=== PATIENT | male | born 1970 | race Caucasian/White ===

== ENCOUNTER 2022-04-05 10:40 | Emergency (ER) | payer BC ==
--- OUTSIDE RECORDS SUMMARY | 2022-04-05 10:42 | XMS REPORT | Continuity of Care Document ---
:1970 Author Organization [facility] t Address [address] [place] [address] Care Team Providers Name Role Phone XIOMY HOOD Attending Clinician Unavailable Paul Brown MD Attending Clinician Only, Adc Test Attending Clinician Unavailable Mason Duenas MD Attending Clinician MASON DUENAS Attending Clinician Unavailable Doctor Unassigned, [place] Attending Clinician Unavailable Payers Payer Name Policy Type Policy Number Effective Date Expiration Date S nadeen BCBSTX PPO [id number] 2005 00:00:00 Problems This patient has no known problems. Allergies, Adverse Reactions, Alerts Allergy Allergy Status Severity Reaction(s) Onset Inactive Treating Comm ents Source Name Type Date Date Clinician NO KNOWN Drug Active Univers ALLERGIE Class ity of [facility] Social History Social Habit Start Date Stop Date Quantity Comments Source [facility] Sm[facility] Status Start Date Stop Date Source [facility] Medications This patient has no known medications. Procedures This patient has no known procedures. Encounters Start End Encounter Admission Attending Care Care Encounter Source Date/Time Date/Time Type Type Clinicians Facility Department ID 2020-12-06 Outpatient SANA, [facility] [id number] [place] 10:49:39 XIOMY [facility] 2020-07-23 2020-07-23 Telephone BLAIR Brown [id number] [facility] 00:00:00 00:00:00 Paul MUSA [id number] i [facility] [id number] Michael as [id number] [address] 2020 2020 Laboratory Only, Adc Test [facility] [id number] Univers 10:38:57 10:53:57 Only Mason Duenas [id number] ity [facility] [id number] [facility] [id number] [place] [address] [address] 2020 2020 Outpatient R HENRIQUE [facility] [id number] [facility] 10:45:00 10:45:00 MASON waterman [facility] 2020 2020 Letter Doctor BLAIR [id number] Univers 00:00:00 00:00:00 (Out) Unassigned, LENCHO [id number] ity of [place] [facility] [id number] [facility] [phone] [place] [address] Branch Results This patient has no known results.
[2022-04-05] MEDS ORDERED: PHENYLEPHRINE 0.5% NOSE 15ML NAS ONE (10:51)
[2022-04-05] MEDS ORDERED: OXYMETAZOLINE HCL 0.05% 15ML NAS ONE (11:01)
--- NOTE | 2022-04-05 12:34 | EDPHYS ---
Physician Documentation [facility] Name: Santos Barnett Age: 51 yrs Sex: Male : 1970 Arrival Date: 04/05/2022 Time: 10:40 Bed 15 Private MD: Aby Fontanez ED Physician Andrés Casey HPI: 04/05 11:29 This 51 yrs old Male presents to ER via Ambulatory with complaints of Nose Bleed. rn 11:29 The patient presents with a nose bleed, occurred from an unknown cause, that is rn intermittent. Onset: The symptoms/episode began/occurred this morning. Modifying factors: The symptoms are alleviated by nothing. the symptoms are aggravated by blowing nose. Associated signs and symptoms: Loss of consciousness: the patient experienced no loss of consciousness, Pertinent negatives: lightheadedness, shortness of breath. Severity of symptoms: At their worst the symptoms were moderate in the emergency department the symptoms are unchanged. The patient has not experienced similar symptoms in the past. The patient has not recently seen a physician. Pt reports on xarelto and started with nosebleed that began 45 min ago. Briefly improved but then started again. No trauma. No change in dose. . Historical: - Allergies: 10:50 No Known Allergies; iw - Home Meds: 11:45 Xarelto oral [Active]; metoprolol tartrate Oral [Active]; ko1 - Immunization history:: Adult Immunizations unknown. - Social history:: Smoking status: Patient/guardian denies using tobacco, the patient reports quitting approximately 15 years ago, Patient uses street drugs, marijuana. - Family history:: not pertinent. - Hospitalizations: : No recent hospitalization is reported. ROS: 11:29 Constitutional: Negative for fever, chills, and weight loss, ENT: + nosebleed intake rn: Negative for chest pain, palpitations, and edema, Respiratory: Negative for shortness of breath, cough, wheezing, and pleuritic chest pain, Abdomen/GI: Negative for abdominal pain, nausea, vomiting, diarrhea, and constipation, Neuro: Negative for headache, weakness, numbness, tingling, and seizure. Exam: 11:31 Constitutional: This is a well developed, well nourished patient who is awake, alert, rn and in no acute distress. Head/Face: Normocephalic, atraumatic. ENT: + left sided nosebleed, with clot evacuated. Cardiovascular: Regular rate and rhythm. No pulse deficits. Respiratory: No increased work of breathing, no retractions or nasal flaring. Neuro: Awake and alert, GCS 15 Vital Signs: 10:49 BP 159 / 103; Pulse 103; Resp 16; Temp 98.2; Pulse Ox 95% on R/A; iw 11:00 BP 155 / 98; Pulse 98; ko1 11:00 Weight 89.81 kg; Height 5 ft. 5 in. (165.10 cm); Pain 0/10; ko1 12:07 BP 157 / 93; ko1 11:00 Body Mass Index 32.95 (89.81 kg, 165.10 cm) ko1 Procedures: 11:55 Epistaxis treatment: A moderate amount of bleeding noted from Treated using rn Oxymetazoline sprays, rhino rocket, Bleeding decreased. MDM: 10:44 Patient medically screened. rn 12:32 Differential diagnosis: spontaneous epistaxis. Data reviewed: vital signs, nurses rn notes, and as a result, I will discharge patient. Counseling: I had a detailed discussion with the patient and/or guardian regarding: the historical points, exam findings, and any diagnostic results supporting the discharge/admit diagnosis, the need for outpatient follow up, to return to the emergency department if symptoms worsen or persist or if there are any questions or concerns that arise at home. Response to treatment: the patient's symptoms have resolved after treatment, and as a result, I will discharge patient. Special discussion: I discussed with the patient/guardian in detail that at this point there is no indication for admission to the hospital. It is understood, however, that if the symptoms persist or worsen the patient needs to return immediately for re-evaluation. ED course: Bleeding resolved, observed for sometime here, feels better, denies any blood running down throat or right nare. WIll dc home with ENT f/u or return here if unable to f/u with ENT. . Administered Medications: 11:02 Drug: Oxymetazoline Drops (0.05 %) 1 sprays Route: Intranasal; Site: both nares; ko1 Disposition Summary: 04/05/22 12:33 Discharge Ordered Location: Home rn Problem: new rn Symptoms: are resolved rn Condition: Stable rn Diagnosis - Epistaxis rn Followup: rn - With: Selin Vaz MD - When: 2 - 3 days - Reason: Recheck today's complaints, Re-evaluation by your physician Discharge Instructions: - Discharge Summary Sheet rn - Ronald, Adult rn Forms: - Medication Reconciliation Form rn - Thank You Letter rn - Antibiotic nurse charge rn - Prescription Opioid Use rn Prescriptions: - Augmentin 875-125 mg Oral Tablet - take 1 tablet by ORAL route every 12 hours for 10 days; 20 tablet; Refills: 0, rn Product Selection Permitted Signatures: Hattie Del Valle RN Andrés Jeffrey MD MD rn Oliver, Kathy, RN RN ko1
--- NOTE | 2022-04-05 12:34 | ER ---
Nurse's Notes [facility] Name: Santos Barnett Age: 51 yrs Sex: Male : 1970 Arrival Date: 04/05/2022 Time: 10:40 Bed 15 Private MD: Aby Fontanez Diagnosis: Epistaxis Presentation: 04/05 10:49 Chief complaint: Patient states: nose bleed X 90 minutes , on xarelto. Coronavirus iw screen: At this time, the client does not indicate any symptoms associated with coronavirus-19. Ebola Screen: Patient negative for fever greater than or equal to 101.5 degrees Fahrenheit, and additional compatible Ebola Virus Disease symptoms Patient denies exposure to infectious person. Patient denies travel to an Ebola-affected area in the 21 days before illness onset. No symptoms or risks identified at this time. Initial Sepsis Screen: Does the patient meet any 2 criteria? No. Patient's initial sepsis screen is negative. Does the patient have a suspected source of infection? No. Patient's initial sepsis screen is negative. Risk Assessment: Do you want to hurt yourself or someone else? Patient reports no desire to harm self or others. Onset of symptoms was April 05, 2022. 10:49 Method Of Arrival: Ambulatory iw 10:49 Acuity: ELDA 3 iw Historical: - Allergies: 10:50 No Known Allergies; iw - Home Meds: 11:45 Xarelto oral [Active]; metoprolol tartrate Oral [Active]; ko1 - Immunization history:: Adult Immunizations unknown. - Social history:: Smoking status: Patient/guardian denies using tobacco, the patient reports quitting approximately 15 years ago, Patient uses street drugs, marijuana. - Family history:: not pertinent. - Hospitalizations: : No recent hospitalization is reported. Screenin:00 Abuse screen: Denies threats or abuse. Denies injuries from another. Nutritional ko1 screening: No deficits noted. Tuberculosis screening: No symptoms or risk factors identified. Fall Risk None identified. Assessment: 11:00 General: Appears distressed, uncomfortable, Behavior is calm, cooperative, appropriate ko1 for age. Pain: Denies pain. Neuro: No deficits noted. Cardiovascular: No deficits noted. Respiratory: No deficits noted. GI: No deficits noted. : No deficits noted. EENT: Nares with bleeding noted bilaterally Reports. Derm: No deficits noted. Musculoskeletal: No deficits noted. Vital Signs: 10:49 BP 159 / 103; Pulse 103; Resp 16; Temp 98.2; Pulse Ox 95% on R/A; iw 11:00 BP 155 / 98; Pulse 98; ko1 11:00 Weight 89.81 kg; Height 5 ft. 5 in. (165.10 cm); Pain 0/10; ko1 12:07 BP 157 / 93; ko1 11:00 Body Mass Index 32.95 (89.81 kg, 165.10 cm) ko1 ED Course: 10:40 Patient arrived in ED. mr 10:41 Aby Fontanez is Private Physician. mr 10:44 Andrés Casey MD is Attending Physician. rn 10:50 Triage completed. iw 10:50 Arm band placed on. iw 11:00 Mary Nixon, FRANCES is Primary Nurse. ko1 11:00 Patient has correct armband on for positive identification. Bed in low position. Call ko1 light in reach. 11:00 Assist provider with nosebleed control using Afrin sprays, nasal clamp, rhino rocket ko1 placed for extensive packing needs, Bleeding from both nares. Set up for procedure. Performed by Andrés Casey MD Patient tolerated well. 12:07 Assist provider with nosebleed control using direct pressure, posterior packing, ko1 Performed by Andrés Casey MD. 12:33 Selin Vaz MD is Referral Physician. rn 12:40 Patient did not have IV access during this emergency room visit. ko1 Administered Medications: 11:02 Drug: Oxymetazoline Drops (0.05 %) 1 sprays Route: Intranasal; Site: both nares; ko1 Medication: 11:00 VIS not applicable for this client. ko1 Outcome: 12:33 Discharge ordered by . rn 12:40 Discharged to home ambulatory. ko1 12:40 Condition: improved 12:40 Discharge instructions given to patient, Instructed on discharge instructions, follow up and referral plans. medication usage, Demonstrated understanding of instructions, follow-up care, Prescriptions given X 1. 12:41 Patient left the ED. ko1 Signatures: America Chawla Irene, RN FRANCES iw Andrés Casey MD MD rn Oliver, Kathy, RN RN ko1
[2022-04-05 12:45] VITALS: TEMP 98.2; O2SAT 95
[2022-04-05 12:47] VITALS: BP 157/93
== END 2022-04-05 12:41 | disposition home or self-care (01) ==
LOC: ER 10:40
DX: R04.0 Epistaxis (principal); Z87.891 Personal history of nicotine dependence; Z79.01 Long term (current) use of anticoagulants; Z79.899 Other long term (current) drug therapy
CPT/HCPCS: 30901; 99283

== ENCOUNTER 2022-05-27 16:29 | Emergency (ER) | payer BC ==
--- OUTSIDE RECORDS SUMMARY | 2022-05-27 16:31 | XMS REPORT | Continuity of Care Document ---
:1970 Author Organization [facility] t Address [address] [place] [address] Care Team Providers Name Role Phone XIOMY HOOD Attending Clinician Unavailable Paul Brown MD Attending Clinician Only, Adc Test Attending Clinician Unavailable Mason Duenas MD Attending Clinician MASON DUENAS Attending Clinician Unavailable Doctor Unassigned, [place] Attending Clinician Unavailable Payers Payer Name Policy Type Policy Number Effective Date Expiration Date S nadeen BCBSTX PPO [id number] 2005 00:00:00 Problems This patient has no known problems. Allergies, Adverse Reactions, Alerts Allergy Allergy Status Severity Reaction(s) Onset Inactive Treating Comm ents Source Name Type Date Date Clinician NO KNOWN Drug Active Univers ALLERGIE Class ity [facility] Social History Social Habit Start Date Stop Date Quantity Comments Source [facility] Smoking Status Start Date Stop Date Source Unknown if ever smoked Universit y [facility] Medications This patient has no known medications. Procedures This patient has no known procedures. Encounters Start End Encounter Admission Attending Care Care Encounter Source Date/Time Date/Time Type Type Clinicians Facility Department ID 2020-12-06 Outpatient SANA, [facility] [id number] [place] 10:49:39 XIOMY [facility] 2020-07-23 2020-07-23 Telephone BLAIR Brown [id number] [facility] 00:00:00 00:00:00 Paul MUSA [id number] i [facility] [id number] Michael as [phone] [address] 2020 2020 Laboratory Only, Adc Test [facility] [id number]. [id number] Univers 10:38:57 10:53:57 Only Mason Duenas [id number] ity [facility] [id number] [facility] [id number] [facility] [address] 2020 2020 Outpatient R HENRIQUE [facility] [id number] [facility] 10:45:00 10:45:00 MASON waterman of [facility] 2020 2020 Letter Doctor BLAIR [id number] Univers 00:00:00 00:00:00 (Out) Unassigned, LENCHO [id number] ity of [place] [facility] [id number] [facility] [phone] [place] [address] [address] Results This patient has no known results.
[2022-05-27] MEDS ORDERED: MORPHINE 4 MG/ML SYR ONE ×2 (17:02→18:33)
[2022-05-27] MEDS ORDERED: ONDANSETRON 4 MG/2 ML VIAL ONE ×3 (17:02→18:33)
[2022-05-27] MEDS ORDERED: METHYLPREDNISOLONE 125 MG INJ ONE (17:04)
[2022-05-27 17:10] LABS: Absolute Lymphocytes (CBC) 2.1 K/uL (0.7-4.9); Hematocrit 42.9 % (39.6-49.0); Lymphocytes % 17.5 % (15.3-44.8); MCV 82.7 fL (80-100); MPV 9.1 fL (7.6-11.3); RBC Red Blood Cell Count 5.19 M/uL (4.33-5.43)
[2022-05-27] MEDS ORDERED: NA CHLORIDE 0.9% 1,000 ML ONE ×2 (17:10→18:33)
[2022-05-27] MEDS ORDERED: FENTANYL CITR 100 MCG/2 ML ONE (17:10)
[2022-05-27 17:20] LABS: Potassium 3.9 mmol/L (3.5-5.1)
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
[2022-05-27 22:54] VITALS: BP 131/88; TEMP 97.4; O2SAT 95
== END 2022-05-27 21:08 | disposition short-term general hospital (02) ==
LOC: ER 16:29
DX: S22.41XA Multiple fractures of ribs, right side, initial encounter for closed fracture (principal); S27.321A Contusion of lung, unilateral, initial encounter
CPT/HCPCS: 96361; 85025; 80048; 36415; 82565; 70450; 72125; 71260; 74177; 96375; 96374; 99284; Q9967; J3010; J7030 ×2; J2405 ×2; J2930